=== PATIENT | female | born 2005 | race African-American/Black ===

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

== ENCOUNTER 2025-03-07 03:27 | Emergency (ER) | payer MEDICAID, OTHER, SELFPAY | END 2025-03-07 05:17 | disposition home or self-care (01) | LOC: ERS 03:27 | DX: S51.811A Laceration without foreign body of right forearm, initial encounter (principal); W25.XXXA Contact with sharp glass, initial encounter | CPT/HCPCS: 12001; 99282 ==